=== PATIENT | male | born 1990 ===

== ENCOUNTER 2025-03-21 03:18 | Emergency (ER) | payer OTHER ==
[~2025-03-21] VITALS: Ht 175.3 cm; Wt 80.9 kg
[2025-03-21 03:46] VITALS: BP 139/94; PULSE 139; RESP 20; TEMP 98; O2SAT 95
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
== END 2025-03-21 04:14 ==
LOC: ER 03:19
DX: Z02.89 Encounter for other administrative examinations (principal)
CPT/HCPCS: 99283